=== PATIENT | female | born 2000 ===

== ENCOUNTER 2023-07-06 07:05 | Inpatient (IN) | payer OTHER ==
[2023-07-06] MEDS ORDERED: ELECTROLYTE-148 SOLN 1,000 ML IV ONE (07:50)
[2023-07-06] MEDS ORDERED: AMPICILLIN SODIUM 2 GM VIAL ONE (09:56)
[2023-07-06] MEDS ORDERED: BUTORPHANOL TARTRATE 2 MG/ML VIAL IVPB ONE (10:02)
[2023-07-06] MEDS ORDERED: PROMETHAZINE HCL 25 MG/1 ML VIAL IVPB ONE (10:02)
[2023-07-06] MEDS ORDERED: AMPICILLIN - 2 GM in SODIUM CHLORIDE 100 ML IVPB ONE (10:04)
[2023-07-06] MEDS ORDERED: DEXTROSE 5%-LACTATED RINGERS 1,000 ML IV SCH (10:15)
[2023-07-06] MEDS ORDERED: OXYTOCIN 30 UNITS in 0.9% NS 30 UNIT/500 ML INFUS.BAG IVPB SCH (10:15)
[2023-07-06 11:23] VITALS: BMI 31.5
[2023-07-06 11:31] LABS: INR 1.02 (0.83-1.09); PROTHROMBIN TIME (PATIENT) 11.8 SEC (9.7-13.0)
[2023-07-06 11:33] LABS: BASO % 0.7 % (0-2.0); EOS % 0.1 % (0-4.5); HEMATOCRIT 35.7 % (32.4-45.2); HEMOGLOBIN 11.1 GM/dL (10.7-15.3); LYMPH % 15.5 % (8-40); MCH 20.9 pg (25.7-33.7); MEAN CELL VOLUME 67.5 fl (80-96); MONO % 4.1 % (3.8-10.2); NEUT % 79.6 % (42.8-82.8); PLATELET COUNT 332 10^3/uL (134-434); RBC 5.29 M/mm3 (3.60-5.2); RDW 17.9 % (11.6-15.6); WHITE BLOOD COUNT 10.6 K/mm3 (4.0-10.0)
[2023-07-06 11:34] LABS: ACTIVATED PTT 27.8 SECONDS (25.2-36.5)
[2023-07-06 11:52] LABS: POTASSIUM 4.1 mmol/L (3.5-5.1)
[2023-07-06 11:55] LABS: BLOOD UREA NITROGEN 7.6 mg/dL (7-18); CALCIUM 8.4 mg/dL (8.5-10.1)
[2023-07-06 11:59] LABS: CREATININE 0.6 mg/dL (0.55-1.3)
[2023-07-06 12:43] LABS: HIV INTERPRETATION NEGATIVE (NEGATIVE)
[2023-07-06 12:51] LABS: ANISOCYTOSIS 2+; MACROCYTOSIS 0
[2023-07-06] MEDS ORDERED: PROMETHAZINE HCL 25 MG/1 ML VIAL ONE (13:52)
[2023-07-06] MEDS ORDERED: BUTORPHANOL TARTRATE 2 MG/ML VIAL ONE (13:52)
[2023-07-06] MEDS ORDERED: AMPICILLIN SODIUM 1 GM VIAL ONE ×2 (14:25→17:48)
[2023-07-06] MEDS: AMPICILLIN - 1 GM in SODIUM CHLORIDE 100 ML IVPB SCH ×3 (14:30→22:46)
[2023-07-06] MEDS ORDERED: OXYTOCIN 20 UNITS in 0.9% NS 20 UNIT/1,000 ML INFUS.BAG IV ONE (17:48)
[2023-07-06] MEDS ORDERED: LIDOCAINE HCL 1% PRESERVATIVE FREE - 30ML VIAL ONE (17:49)
[2023-07-06] MEDS ORDERED: BENZOCAINE 20% 57 GM BOTTLE TP PRN (19:59)
[2023-07-06] MEDS ORDERED: BISACODYL 10 MG SUPP.RECT RC PRN (19:59)
[2023-07-06] MEDS ORDERED: METHYLERGONOVINE MALEATE 0.2 MG/1 ML AMP IM PRN (19:59)
[2023-07-06] MEDS ORDERED: WITCH HAZEL 50% (TUCKS) 40 PAD/JAR PAD TP PRN (19:59)
[2023-07-06] MEDS ORDERED: BENZOCAINE 28 GM HEMORRHOIDAL OINTMENT TP PRN (19:59)
[2023-07-06] MEDS ORDERED: ACETAMINOPHEN 325 MG TABLET (FP) PO PRN (19:59)
[2023-07-06] MEDS ORDERED: oxyCODONE HCL 5 MG TABLET PO PRN (19:59)
[2023-07-06] MEDS ORDERED: OXYTOCIN 20 UNITS in 0.9% NS 20 UNIT/1,000 ML INFUS.BAG IV SCH (20:00)
[2023-07-06 20:44] VITALS: RESP 18
[2023-07-07] MEDS: AMPICILLIN - 1 GM in SODIUM CHLORIDE 100 ML IVPB SCH (01:23)
[2023-07-07] MEDS: IBUPROFEN 600 MG TABLET (FP) PO PRN ×2 (06:44→22:38)
[2023-07-07 08:25] LABS: BASO % 0.2 % (0-2.0); EOS % 0.1 % (0-4.5); HEMATOCRIT 28.3 % (32.4-45.2); HEMOGLOBIN 8.8 GM/dL (10.7-15.3); LYMPH % 17.7 % (8-40); MCH 20.9 pg (25.7-33.7); MCHC 31.1 g/dl (32.0-36.0); MEAN CELL VOLUME 67.2 fl (80-96); MEAN PLT VOLUME 8.7 fl (7.5-11.1); MONO % 6.7 % (3.8-10.2); NEUT % 75.3 % (42.8-82.8); PLATELET COUNT 233 10^3/uL (134-434); RBC 4.21 M/mm3 (3.60-5.2); RDW 17.4 % (11.6-15.6); WHITE BLOOD COUNT 12.3 K/mm3 (4.0-10.0)
[2023-07-07] MEDS: FERROUS SO4 325 MG TABLET (FP) PO SCH (10:31)
[2023-07-07] MEDS: PRENATAL VITAMINS W/ FOLIC ACID TABLET (FP) PO SCH (10:31)
[2023-07-07] MEDS ORDERED: SENNOSIDES/DOCUSATE COMBO (SENNA PLUS) TABLET (UD) PO PRN (22:00)
[2023-07-08] MEDS: IBUPROFEN 600 MG TABLET (FP) PO PRN ×2 (02:32→09:13)
[2023-07-08] MEDS: FERROUS SO4 325 MG TABLET (FP) PO SCH (09:13)
[2023-07-08] MEDS: PRENATAL VITAMINS W/ FOLIC ACID TABLET (FP) PO SCH (09:13)
[2023-07-08 11:18] VITALS: BP 110/73; PULSE 80; TEMP 97.6
== END 2023-07-08 14:36 | disposition home or self-care (01) | DRG 560 ==
LOC: JDEL 07:05 → JLDR 09:30 → J3W 21:17
PROVIDERS: ADMIT Obstetrics & Gynecology; ATTEND Obstetrics & Gynecology
PROC: 10E0XZZ Delivery of Products of Conception, External Approach (ICD-10-PCS; principal; 2023-07-06)
PROC: 0HQ9XZZ Repair Perineum Skin, External Approach (ICD-10-PCS; 2023-07-06)
PROC: 0W8NXZZ Division of Female Perineum, External Approach (ICD-10-PCS; 2023-07-06)
DX: O70.0 First degree perineal laceration during delivery (principal); Z3A.40 40 weeks gestation of pregnancy; Z37.0 Single live birth
CPT/HCPCS: 36415; 59025; 80048; 85025; 85610; 85730; 86780; 86803; 86850; 86900; 86901; 87389